=== PATIENT | female | born 1985 | race Hispanic/Latino ===

== ENCOUNTER 2017-07-19 08:25 | Emergency (ER) | payer BC ==
--- NOTE | 2017-07-19 08:41 | ED PDOC ---
Arrival/HPI - General Time Seen by Provider: 07/19/17 08:32 Historian: Patient - History of Present Illness Narrative History of Present Illness (Text): 07/19/17 09:54 Patient is a 31 yo female, past medical history includes prior history of cervical disc disease, presents to the Emergency Department today with history of cough and sore throat for past several days. She reports cough as "dry". No hemoptysis. No chest pain or calf pain. No pleuritic discomfort. She notes that she recently traveled to [place] and developed cough while at [place]. She reports no fevers or chills. No headache. No joint pain. She does note that she also has had neck pain posteriorly for past four days. Pain is worse with turning, especially to right. No difficulty swallowing. She states that several days ago she also had a rash to left upper back that resolved after one day. Rash was not itchy or painful, denies any other rash. Past Medical History - Provider Review Nursing Documentation Reviewed: Yes Family/Social History - Physician Review Nursing Documentation Reviewed: Yes Family/Social History: Unknown Family HX Allergies/Home Meds Allergies/Adverse Reactions: Allergies No Known Allergies Allergy (Verified 07/19/17 09:12) Review of Systems - Review of Systems Constitutional: Fatigue. absent: Weight Change, Fevers, Night Sweats Eyes: absent: Vision Changes ENT: Sore Throat. absent: Hearing Changes, Tinnitus, Voice Changes, Rhinorrhea , Epistaxis, Sinus Congestion Respiratory: Cough. absent: SOB, Sputum, Wheezing Cardiovascular: absent: Chest Pain, Palpitations, Edema, Calf Pain, BENNETT Gastrointestinal: absent: Abdominal Pain, Nausea, Vomiting, Appetite Changes Genitourinary Female: absent: Dysuria, Frequency Musculoskeletal: Neck Pain. absent: Back Pain Skin: Rash. absent: Abscess Neurological: absent: Headache Physical Exam - Physical Exam Narrative Physical Exam (Text): 07/19/17 Head: Atraumatic. Normocephalic. NO facial edema or erythema. Eyes: PERRL. EOMI. Conjunctivae are not pale. ENT: Mucous membranes are moist and intact. Oropharynx is clear and symmetric. No pharyngeal edema or exudates. No stridor. No pooling of secretions Neck: Mid cervical paraspinal tenderness, no midline pain or deformity. Cervical muscle spasm noted right greater than left. No rash or edema. No bruits. Able to flex and extend neck with minimal discomfort. Pain reproduced with rotating to right greater than left. No meningismus. Cardiovascular: Regular rate. Regular rhythm. No murmurs, rubs, or gallops. Pulmonary/Chest: No evidence of respiratory distress. Clear to auscultation bilaterally. No wheezing, rales or rhonchi. Abdominal: Nondistended. No peritoneal signs. Back: No CVA tenderness. No midline tenderness. No edema or rash noted. Extremities: No edema. No cyanosis. No clubbing. Full range of motion in all extremities. No calf tenderness. Skin: Skin is warm and dry. No petechiae. No purpura. No vesicular rash noted. No streaking noted. No pustules noted. Small bugbites to lower extremity with NO erythema or drainage or pus. No circular lesions. No cellulitis. Neurological: Alert, no meningeal signs. Motor and sensory exam intact. Intact and equal strength in upper and lower extremities. Normal speech. Normal gait. Psychiatric: Good eye contact. Normal interaction, affect, and behavior. Vital Signs Reviewed: Yes Vital Signs Temp Pulse Resp BP Pulse Ox 07/19/17 10:31 100 07/19/17 10:30 78 17 120/72 100 07/19/17 08:47 99.0 F 82 18 117/70 100 Temperature: Afebrile Blood Pressure: Normal Pulse: Regular Respiratory Rate: Normal Appearance: Positive for: Well-Appearing, Non-Toxic Pain Distress: Mild Medical Decision Making ED Course and Treatment: 07/19/17 11:45 Patient currently afebrile. Denies history of shakes or chills. No joint pain. No vomiting or diarrhea. Rash reported from several days ago currently not present. It is described as being nonpainful, not itchy, and resolved. Neck pain currently I feel is related to cervical strain vs. torticollis, as pain with direct palpation and specific movements. No trauma and currently neurologically intact. No meningeal signs or fever. There is no oropharynx abscess or neck swelling noted. No difficulty swallowing. No chest pain or sob. CXR obtained for hx of cough. CXR unremarkable. Lungs clear and no hypoxia. No calf pain or swelling. Labs reviewed with patient. Limitations of labs and imaging studies reviewed with patient, but as afebrile, no respiratory distress, no rash, will d/c with close follow-up. Will rx zithromax for bronchitis symptoms, advised ibuprofen or naproxen prn for neck pain. Current exam NOT consistent with sepsis or meningitis, neck pain is related to muscle spasm currently, she has risk of prior hx of reported neck injury I feel that may have predisposed her to this. 07/19/17 11:49 She has been advised of the risks of smoking. - Lab Interpretations Lab Results: 07/19/17 09:26 07/19/17 09:26 Lab Results 07/19/17 09:26: Sodium 145, Potassium 3.9, Chloride 106, Carbon Dioxide 25, Anion Gap 17, BUN 10, Creatinine 0.6 L, Est GFR ( Amer) > 60, Est GFR ( Non-Af Amer) > 60, Random Glucose 90, Calcium 9.6, Total Bilirubin 0.3, AST 22, ALT 24, Alkaline Phosphatase 46, Total Protein 8.1, Albumin 4.6, Globulin 3.5, Albumin/Globulin Ratio 1.3 07/19/17 09:26: WBC 8.6, RBC 4.35, Hgb 12.7, Hct 38.7, MCV 89.0, MCH 29.2, MCHC 32.8, RDW 13.3, Plt Count 252, MPV 9.0, Gran % 73.7 H, Lymph % (Auto) 22.6, Peach % (Auto) 3.2, Eos % (Auto) 0.3 L, Baso % (Auto) 0.2, Gran # 6.36, Lymph # ( Auto) 2.0, Peach # (Auto) 0.3, Eos # (Auto) 0.0, Baso # (Auto) 0.02 - RAD Interpretation Radiology Orders: 07/19/17 09:14 CHEST TWO VIEWS (PA/LAT) [RAD] Stat - Scribe Statement The provider has reviewed the documentation as recorded by the Spencer Bear Provider Scribe Attestation: All medical record entries made by the Scribe were at my direction and personally dictated by me. I have reviewed the chart and agree that the record accurately reflects my personal performance of the history, physical exam, medical decision making, and the department course for this patient. I have also personally directed, reviewed, and agree with the discharge instructions and disposition. Disposition/Present on Arrival - Present on Arrival Any Indicators Present on Arrival: No - Disposition Have Diagnosis and Disposition been Completed?: Yes Diagnosis: Torticollis, Bronchitis, Cough Disposition: HOME/ ROUTINE Disposition Time: 10:30 Patient Plan: Discharge Condition: GOOD Discharge Instructions (ExitCare): Acute Bronchitis, Adult (DC), Cough, Adult ( DC), Torticollis (DC) Additional Instructions: Follow your symptoms closely. For any fevers or chills, any rash, any chest pain , any leg pain or swelling, any abdominal pain, any difficulty swallowing, any shortness of breath, any numbness or weakness to arms or legs, any dizziness, any persistent or worsening of symptoms, get rechecked. Follow-up with your physician in 1-2 days. Prescriptions: Naproxen 250 mg PO BID PRN #10 tablet PRN Reason: Pain, Mild (1-3) Azithromycin [Zithromax] 250 mg PO DAILY #6 tab Referrals: Miguel Gillespie DO [Staff Provider] - Follow up with primary Forms: [employer] ([place]ian)
[2017-07-19 08:47] VITALS: TEMP 99; O2SAT 100; BMI 21.9
[2017-07-19 09:41] LABS: BASO # 0.02 K/mm3 (0.0-2.0); BASO % 0.2 % (0.0-3.0); EOS % 0.3 % (1.5-5.0); GRAN # 6.36 (1.4-6.5); GRAN % 73.7 % (50.0-68.0); HEMOGLOBIN 12.7 g/dL (12.0-16.0); LYMPH % 22.6 % (22.0-35.0); MEAN CORPUSCULAR HEMOGLOBIN 29.2 pg (25.0-35.0); MEAN CORPUSCULAR HGB CONC 32.8 g/dl (31.0-37.0); MONO # 0.3 (0.1-0.6); MONO % 3.2 % (1.0-6.0); RBC 4.35 10^6/uL (3.5-6.1); RED CELL DISTRIBUTION WIDTH 13.3 % (11.5-14.5); WHITE BLOOD COUNT 8.6 10^3/ul (4.5-11.0)
[2017-07-19 09:55] LABS: ALB/GLOB RATIO 1.3 (1.1-1.8); ALBUMIN 4.6 g/dL (3.0-4.8); ALT/SGPT 24 U/L (7-56); AST/SGOT 22 U/L (14-36); BLOOD UREA NITROGEN 10 mg/dL (7-21); CALCIUM 9.6 mg/dL (8.4-10.5); GFR AFRICAN-AMERICAN > 60; GFR NON-AFRICAN AMERICAN > 60
--- NOTE | 2017-07-19 09:58 | RAD ---
HISTORY: cough for four days COMPARISON: No prior. TECHNIQUE: Chest PA and lateral FINDINGS: LUNGS: No active pulmonary disease. PLEURA: No significant pleural effusion identified. No pneumothorax apparent. CARDIOVASCULAR: Normal. OSSEOUS STRUCTURES: No significant abnormalities. VISUALIZED UPPER ABDOMEN: Normal. OTHER FINDINGS: None. IMPRESSION: No active disease.
[2017-07-19 10:31] VITALS: BP 120/72; PULSE 78; RESP 17
== END 2017-07-19 10:31 | disposition home or self-care (01) ==
LOC: ED 08:25
DX: J40 Bronchitis, not specified as acute or chronic (principal); M43.6 Torticollis